=== PATIENT | male | born 1970 | race Caucasian/White ===

== ENCOUNTER → 2017-01-27 | Outpatient (CLI) | payer BC ==
[2017-01-11 12:01] VITALS: BP 141/86
--- NOTE | 2017-01-27 10:50 | RAD ---
HISTORY: Preop for back surgery. Study: For chest two views Comparison: April 15, 2016. Findings: The trachea is midline. The cardiac silhouette is unremarkable. The lungs are clear without focal infiltrate or effusion. The bony thorax is unremarkable. IMPRESSION: 1. No acute cardiopulmonary disease. Reported By:
[2017-01-27 11:05] LABS: BASOPHILS # (AUTO) 0.2 X10^3/uL (0.0-0.1); BASOPHILS % (AUTO) 0.9 % (0.2-1.0); EOSINOPHILS # (AUTO) 0.3 x10^3/uL (0.0-0.2); EOSINOPHILS % (AUTO) 1.5 % (0.9-2.9); HEMATOCRIT 47.9 % (42.0-54.0); HEMOGLOBIN 16.3 g/dL (13.5-18.0); LYMPHOCYTES # (AUTO) 2.6 X10^3/uL (1.3-2.9); LYMPHOCYTES % (AUTO) 15.3 % (21.0-51.0); MEAN CORPUSCULAR HGB CONC 33.9 g/dL (33.0-35.0); MEAN CORPUSCULAR VOLUME 88.4 fL (80.0-100.0); MEAN PLATELET VOLUME 9.1 fL (7.4-11.0); MONOCYTES # (AUTO) 1.3 x10^3/uL (0.3-0.8); MONOCYTES % (AUTO) 7.5 % (0.0-13.0); NEUTROPHILS # (AUTO) 12.7 x10^3/uL (2.2-4.8); NEUTROPHILS % (AUTO) 74.8 % (42.0-75.0); PLATELET COUNT 214 X10^3/uL (150.0-450.0); RED BLOOD COUNT 5.42 X10^6/uL (4.7-6.0)
[2017-01-27 11:07] LABS: BILIRUBIN,URINE NEGATIVE (NEGATIVE); BLOOD/HEMOGLOBIN,URINE NEGATIVE (NEGATIVE); GLUCOSE, URINE 2+ (NEGATIVE); KETONES,URINE 1+ (NEGATIVE); LEUKOCYTE ESTERASE ,URINE NEGATIVE (NEGATIVE); NITRITES,URINE NEGATIVE (NEGATIVE); PROTEIN,URINE NEGATIVE (NEGATIVE); UROBILINOGEN,URINE NORMAL (NORMAL)
[2017-01-27 11:19] LABS: APPEARANCE,URINE CLEAR (CLEAR); COLOR,URINE YELLOW (YELLOW)
[2017-01-27 11:20] LABS: BACTERIA,URINE TRACE /HPF (NEGATIVE); RBC,URINE 0-2 /HPF (NEGATIVE); SQUAMOUS EPITHELIAL CELL,UR NEGATIVE /HPF (NEGATIVE)
[2017-01-27 11:24] LABS: CREATININE,URINE 102.05 mg/dL (40-278); MICROALBUM/CREATININE RATIO,UR 7 mg/g cre (0-29); MICROALBUMIN,URINE 7.8 mg/L
[2017-01-27 11:25] LABS: HEMOGLOBIN A1C 8.5 % (4.5-6.2)
[2017-01-27 11:34] LABS: ALANINE AMINOTRANSFERASE 47 Units/L (12-78); ALBUMIN 3.9 g/dL (3.4-5.0); ALKALINE PHOSPHATASE 87 Units/L (46-116); ASPARTATE AMINO TRANSFERASE 23 Units/L (15-37); BLOOD UREA NITROGEN 16 mg/dL (7-18); CALCIUM 8.6 mg/dL (8.5-10.1); CARBON DIOXIDE 22.7 mmol/L (21-32); CHLORIDE 105 mmol/L (98-107); CHOL/HDL RATIO 6.4 (0.0-5.0); CHOLESTEROL 187 mg/dL (0-200); COR NA(FOR HYPERGLY) 142 mmol/L (136-145); CREATININE 0.89 mg/dL (0.70-1.30); GLUCOSE 142 mg/dL (65-99); HDL CHOLESTEROL 29 mg/dL (40-60); SODIUM 141 mmol/L (136-145); TOTAL PROTEIN 7.3 g/dL (6.4-8.2); TRIGLYCERIDES 402 mg/dL (0-150); TSH (3RD GENERATION) 0.343 uIU/mL (0.358-3.74); eGFR BLACK RACES > 60 (>60); eGFR NON BLACK RACES > 60 (>60)
== END ==
LOC: LAB 10:22
PROVIDERS: ATTEND Internal Medicine
DX: Z01.810 Encounter for preprocedural cardiovascular examination (principal); Z01.811 Encounter for preprocedural respiratory examination; E11.9 Type 2 diabetes mellitus without complications; I10 Essential (primary) hypertension
CPT/HCPCS: 36415; 71020; 80053; 80061; 81001; 82043; 83036; 84443; 85025

== ENCOUNTER → 2017-03-02 | Outpatient (CLI) | payer SELFPAY ==
[2017-01-11 12:01] VITALS: BP 141/86
--- NOTE | 2017-03-02 13:26 | CT ---
CLINICAL INDICATION: Screening COMPARISON: None PROCEDURE: Gated acquisition of images through the mediastinum was performed without contrast. Data set was used for calcium scoring. FINDINGS: Total coronary calcium score is 9 LM: 3 LAD: 6 LCX: 0 RCA: 0 Extracardiac findings: No pathologically enlarged lymph nodes. The aortic arch is unremarkable in its appearance with norm al vascular configuration. No airspace disease, effusion, or pneumothorax identified. Normal-sized heart. The soft tissues and osseous structures are unremarkable. IMPRESSION: 1. Total calcium score of 9, placing the patient between the 50th and 75th percentile for males of e quivalent age. The score implies minimal identifiable plaque. Risk of coronary artery disease is con sidered very unlikely, less than 10%. Reported By:
== END ==
LOC: RAD 12:34
PROVIDERS: ATTEND Internal Medicine Cardiovascular Disease
DX: Z13.6 Encounter for screening for cardiovascular disorders (principal)